=== PATIENT | male | born 1945 | race Caucasian/White ===

== ENCOUNTER → 2019-03-25 | Day surgery (SDC) | payer BC ==
[~2019-03-25] MED LIST: ACETAMINOPHEN 325 MG TABLET PO PRN; ALBUTEROL SULFATE 2.5 MG/3 ML NEBU. NEB PRN; ASPI81TA50 PO; ATROPINE 0.5 MG/5 ML DISP.SYRIN. IV PRN; BALANCED SALT IRRIG OPHTH SOLN 15 ML BOTTLE. IRR ONE; CARB1TAB14 PO; CARB1TAB2 PO; CATARACT OPHTH GEL 0.5 ML SYRINGE. ONE; CATARACT OPHTH GEL 0.5 ML SYRINGE. OS ONE; CHONDROIT-SOD-HYALURONATE KIT. OS ONE; EPINEPHrine AMPULE 0.5 MG in BALANCED SALT IRRIG SOLN PLUS 500 ML IO ONE; ERYTHROMYCIN 0.5% OPHTH OINTMENT 1GM TUBE. OS ONE; FERR325T14 PO; FINA5TAB4 PO; HYALURONIDASE 75UNITS in LIDOCAINE 2% PF OPHTH 10 ML SYRINGE. OS ONE; IV RINGERS SOLUTION,LACTATED 1,000 ML IV SCH; KETOROLAC TROMETHAMINE 0.5% OPHTH SOLUTION BOTTLE. ONE; LIDO/EPI IN BSS OPHTH 8 ML SYRINGE OD SCH; LIDOCAINE 2% PF Vial for OR 5 ML VIAL. ONE; METO50TA29 PO; OMEP20CA16 PO; ONDANSETRON PF 4 MG/2 ML VIAL. IV PRN; POVIDONE-IODINE 5% OPHTH SOLUTION 30ML BOTTLE. OS ONE; PROPOFOL 20 ML IV ONE; TETRACAINE 0.5% OPHTH SOLUTION 4ML BOTTLE. OS ONE; TETRACAINE 0.5% OPHTH SOLUTION 4ML BOTTLE. OU ONE; TOBRAMYCIN 0.3% OPHTH SOLUTION 5ML BOTTLE. OS SCH; diphenhydrAMINE 50 MG/ML VIAL IV PRN; prednisoLONE ACETATE 1% OPHTH SUSPENSION 5ML BOTTLE. ONE; prednisoLONE ACETATE 1% OPHTH SUSPENSION 5ML BOTTLE. OS SCH
[2019-03-25] MEDS: TOBRAMYCIN 0.3% OPHTH SOLUTION 5ML BOTTLE. OS SCH ×3 (07:06→07:16)
--- NOTE | 2019-03-25 08:33 | PDOC4 ---
CATARACT Operative Report DATE DATE: 03/25/19 TIME: 08:31 Operation Performed OPERATIVE REPORT Name: Malcolm Plascencia Operation Date: Preoperative Diagnosis: 1. Senile cataract, LEFTeye. 2. Inadequate pupillary dilation. Postoperative Diagnosis: 1. Senile cataract, LEFT:eye. 2. Inadequate pupillary dilation. Operation: 1. Phacoemulsification with posterior chamber intraocular lens implant. 2. Iris stretching via placement of Malyugan ring. Surgeon: Eugene Trevizo D.O. Anesthesia: Local with monitored anesthesia care Description of Operation: Under cardiac monitoring and mild IV sedation, the patient received peribulbar anesthesia in the holding area. Pressure was applied to the eye with a Honan balloon for approximately 10 minutes. The patient was taken to the operating room and placed in a supine position and the periorbital region was prepped and draped in the usual sterile fashion. A lid speculum was placed between the eyelids. A temporal clear corneal incision was made with a keratome. 1 cc of epi-Shugarcaine was injected into the anterior chamber. Viscoelastic was injected into the eye. A side port incision was made three clock hours to the left of the clear corneal incision. Due to continued poor dilation not responsive to epi-Shugarcaine, a Malyugan ring was placed. A cystotome and capsule forceps were used to make a continuous tear capsulorhexus. Hydrodissection was performed with balanced salt solution. The phacoemulsification needle was placed into the eye and the cataract was removed. The remaining cortical material was removed with the irrigation and aspiration apparatus. The posterior capsule was noted to be clean and intact. Viscoelastic was injected into the eye inflating the capsular bag. A foldable intraocular lens was injected into the eye, unfolding as desired, and positioned in the capsular bag. The Malyugan ring was then removed from the eye. The viscoelastic was aspirated from the eye. The wound edges were hydrated with balanced salt solution. There were no wound leaks. Viscoelastic was injected over the side port and clear corneal incisions. One drop of Vigamox and one drop of prednisolone acetate were instilled into the eye. The lid speculum was removed and a pressure dressing with a Regalado shield was placed over the eye. The patient was taken to the recovery room in good condition. GIANNI TREVIZO DO Mar 25, 2019 08:33
[2019-03-25 08:51] VITALS: BP 115/74
== END | disposition home or self-care (01) ==
LOC: SURG 06:06
PROVIDERS: ATTEND Ophthalmology
DX: H25.12 Age-related nuclear cataract, left eye (principal); I10 Essential (primary) hypertension; K21.9 Gastro-esophageal reflux disease without esophagitis; N40.0 Benign prostatic hyperplasia without lower urinary tract symptoms; G20 Parkinson's disease; Z87.39 Personal history of other diseases of the musculoskeletal system and connective tissue; Z79.82 Long term (current) use of aspirin; Z90.49 Acquired absence of other specified parts of digestive tract; Z98.890 Other specified postprocedural states; Z85.828 Personal history of other malignant neoplasm of skin; Z72.89 Other problems related to lifestyle
CPT/HCPCS: 66982; J0171; J2704; V2632; J2001

== ENCOUNTER → 2019-04-08 | Day surgery (SDC) | payer BC ==
[~2019-04-08] MED LIST changes: +CATARACT OPHTH GEL 0.5 ML SYRINGE. OD ONE; -CATARACT OPHTH GEL 0.5 ML SYRINGE. ONE; -CATARACT OPHTH GEL 0.5 ML SYRINGE. OS ONE; +CHONDROIT-SOD-HYALURONATE KIT. OD ONE; -CHONDROIT-SOD-HYALURONATE KIT. OS ONE; +ERYTHROMYCIN 0.5% OPHTH OINTMENT 1GM TUBE. OD ONE; -ERYTHROMYCIN 0.5% OPHTH OINTMENT 1GM TUBE. OS ONE; +HYALURONIDASE 75UNITS in LIDOCAINE 2% PF OPHTH 10 ML SYRINGE. OD ONE; -HYALURONIDASE 75UNITS in LIDOCAINE 2% PF OPHTH 10 ML SYRINGE. OS ONE; -IV RINGERS SOLUTION,LACTATED 1,000 ML IV SCH; +KETOROLAC TROMETHAMINE 0.5% OPHTH SOLUTION BOTTLE. OD SCH; +LIDO/EPI IN BSS OPHTH 8 ML SYRINGE OD PRN; -LIDO/EPI IN BSS OPHTH 8 ML SYRINGE OD SCH; -LIDOCAINE 2% PF Vial for OR 5 ML VIAL. ONE; +MIDAZOLAM HCL PF 2 MG/2 ML VIAL. IV PRN; +POVIDONE-IODINE 5% OPHTH SOLUTION 30ML BOTTLE. OD ONE; -POVIDONE-IODINE 5% OPHTH SOLUTION 30ML BOTTLE. OS ONE; +TETRACAINE 0.5% OPHTH SOLUTION 4ML BOTTLE. OD ONE; -TETRACAINE 0.5% OPHTH SOLUTION 4ML BOTTLE. OS ONE; +TOBRAMYCIN 0.3% OPHTH SOLUTION 5ML BOTTLE. OD SCH; -TOBRAMYCIN 0.3% OPHTH SOLUTION 5ML BOTTLE. OS SCH; +prednisoLONE ACETATE 1% OPHTH SUSPENSION 5ML BOTTLE. OD SCH; -prednisoLONE ACETATE 1% OPHTH SUSPENSION 5ML BOTTLE. OS SCH
[2019-04-08] MEDS: TOBRAMYCIN 0.3% OPHTH SOLUTION 5ML BOTTLE. OD SCH ×3 (08:36→08:51)
[2019-04-08 09:40] VITALS: BP 132/81
--- NOTE | 2019-04-08 09:42 | PDOC4 ---
CATARACT Operative Report DATE DATE: 04/08/19 TIME: 09:39 Operation Performed OPERATIVE REPORT Name: Malcolm Plascencia Operation Date: Preoperative Diagnosis: 1. Senile cataract, RIGHT eye. 2. Inadequate pupillary dilation. Postoperative Diagnosis: 1. Senile cataract, RIGHT eye. 2. Inadequate pupillary dilation. Operation: 1. Phacoemulsification with posterior chamber intraocular lens implant. 2. Iris stretching via placement of Malyugan ring. Surgeon: Eugene Trevizo D.O. Anesthesia: Local with monitored anesthesia care Description of Operation: After disussing the risks, complication, and alternatives, including but not limited to loss of vision, infection, retinal detachment, capsule rupture, diplopia, ptosis, loss of side vision, dry eye, etc. The patient was taken to the anesthesia block area. Under cardiac monitoring and mild IV sedation, the patient received peribulbar anesthesia in the holding area. Pressure was applied to the eye with a Honan balloon for approximately 10 minutes. The patient was taken to the operating room and placed in a supine position and the periorbital region was prepped and draped in the usual sterile fashion. A lid speculum was placed between the eyelids. A temporal clear corneal incision was made with a keratome. 1 cc of epi-Shugarcaine was injected into the anterior chamber. Viscoelastice was injected into the eye. A side port incision was made three clock hours to the left of the clear corneal incision. Due to continued poor dilation not responsive to epi-Shugarcaine, a Malyugan ring was placed. A cystotome and capsule forceps were used to make a continuous tear capsulorhexus. Hydrodissection was performed with balanced salt solution. The phacoemulsification needle was placed into the eye and the cataract was removed. The remaining cortical material was removed with the irrigation and aspiration apparatus. The posterior capsule was noted to be clean and intact. Viscoelastic was injected into the eye inflating the capsular bag. A foldable intraocular lens was injected into the eye, unfolding as desired, and positioned in the capsular bag. The Malyugan ring was then removed from the eye. The viscoelastic was aspirated from the eye. The wound edges were hydrated with balanced salt solution. There were no wound leaks. Viscoelastic was injected over the side port and clear corneal incisions. One drop of Vigamox and one drop of prednisolone acetate were instilled into the eye. The lid speculum was removed and a pressure dressing with a Regalado shield was placed over the eye. The patient was taken to the recovery room in good condition. GIANNI TREVIZO DO Apr 08, 2019 09:42
== END ==
LOC: SURG 08:02
PROVIDERS: ATTEND Ophthalmology
DX: H25.11 Age-related nuclear cataract, right eye (principal); I10 Essential (primary) hypertension; K21.9 Gastro-esophageal reflux disease without esophagitis; E66.9 Obesity, unspecified; Z68.30 Body mass index [BMI] 30.0-30.9, adult; Z90.49 Acquired absence of other specified parts of digestive tract; Z72.89 Other problems related to lifestyle; Z85.828 Personal history of other malignant neoplasm of skin
CPT/HCPCS: 66982; J0171; J2704; V2632

== ENCOUNTER → 2020-06-29 | Outpatient (CLI) | payer BC ==
[2019-04-08 09:40] VITALS: BP 132/81
[~2020-06-29] MED LIST changes: -ACETAMINOPHEN 325 MG TABLET PO PRN; -ALBUTEROL SULFATE 2.5 MG/3 ML NEBU. NEB PRN; -ATROPINE 0.5 MG/5 ML DISP.SYRIN. IV PRN; -BALANCED SALT IRRIG OPHTH SOLN 15 ML BOTTLE. IRR ONE; +CARB-186 PO; -CARB1TAB2 PO; -CATARACT OPHTH GEL 0.5 ML SYRINGE. OD ONE; -CHONDROIT-SOD-HYALURONATE KIT. OD ONE; -EPINEPHrine AMPULE 0.5 MG in BALANCED SALT IRRIG SOLN PLUS 500 ML IO ONE; -ERYTHROMYCIN 0.5% OPHTH OINTMENT 1GM TUBE. OD ONE; -HYALURONIDASE 75UNITS in LIDOCAINE 2% PF OPHTH 10 ML SYRINGE. OD ONE; -KETOROLAC TROMETHAMINE 0.5% OPHTH SOLUTION BOTTLE. OD SCH; -KETOROLAC TROMETHAMINE 0.5% OPHTH SOLUTION BOTTLE. ONE; -LIDO/EPI IN BSS OPHTH 8 ML SYRINGE OD PRN; -MIDAZOLAM HCL PF 2 MG/2 ML VIAL. IV PRN; -ONDANSETRON PF 4 MG/2 ML VIAL. IV PRN; -POVIDONE-IODINE 5% OPHTH SOLUTION 30ML BOTTLE. OD ONE; -PROPOFOL 20 ML IV ONE; -TETRACAINE 0.5% OPHTH SOLUTION 4ML BOTTLE. OD ONE; -TETRACAINE 0.5% OPHTH SOLUTION 4ML BOTTLE. OU ONE; -TOBRAMYCIN 0.3% OPHTH SOLUTION 5ML BOTTLE. OD SCH; -diphenhydrAMINE 50 MG/ML VIAL IV PRN; -prednisoLONE ACETATE 1% OPHTH SUSPENSION 5ML BOTTLE. OD SCH; -prednisoLONE ACETATE 1% OPHTH SUSPENSION 5ML BOTTLE. ONE
== END ==
LOC: LAB 13:10
PROVIDERS: ATTEND Physician Assistant Surgical
DX: Z01.812 Encounter for preprocedural laboratory examination (principal); M54.16 Radiculopathy, lumbar region; Z20.822 Contact with and (suspected) exposure to COVID-19
CPT/HCPCS: C9803; U0003; U0005

== ENCOUNTER 2021-06-06 03:38 | Emergency (ER) | payer BC ==
[~2021-06-06] VITALS: Ht 177.8 cm; Wt 95.0 kg
--- NOTE | 2021-06-06 03:45 | PHYS DOC ---
General Adult HPI: HPI: "..I am having a lot of spasm.. they are causing more pain... I have severe DJD of my spine.. I ve had 5 back surgeries.. I had been at before ... but now following at [facility] on [address].. but the had contamination of surgery area due to autoclave leak..and now all surgery is delayed.. I just need some to help tonight.. " Patient is a 75 year old male who presents with above hx and complaints o exacerbation of his chronic back pain. 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 Patient has been following with Dr. Donald Henning As primary.. Patient has been following at [facility] Dr. Alberto for plan recurrent back surgery. Patient states he is currently been laid on surgery schedule because of surgery suite contamination at [facility]. Patient recently had prostate surgery and still has some incontinence. Patient denies any recent travel. Patient notes no specific ill contacts. Has been compliant with meds as currently prescribed. Patient does state he hates sedation side effects of meds. Review of Systems: Review of Systems: Constitutional: Denies fever or chills Eyes: Denies change in visual acuity HENT: Denies nasal congestion or sore throat Respiratory: Denies cough or shortness of breath Cardiovascular: Denies chest pain or edema GI: Denies abdominal pain, nausea, vomiting, bloody stools or diarrhea : Denies dysuria Musculoskeletal: Complains of exacerbation of chronic back pain Integument: Denies rash Neurologic: Denies headache, focal weakness or sensory changes Endocrine: Denies polyuria or polydipsia Lymphatic: Denies swollen glands Psychiatric: Denies depression or anxiety Family History: Family History: Noncontributory to presentation Current Medications: Current Meds: See nursing for home meds Allergies: Allergies: Allergies Coded Allergies Type Severity Reaction Last Updated Verified scopolamine Allergy Intermediate 03/25/19 Yes Sulfa (Sulfonamide Antibiotics) Allergy Unknown 03/19/19 Yes levofloxacin Allergy Unknown 03/19/19 Yes oxycodone Allergy Unknown 03/19/19 Yes ranitidine Allergy Unknown 03/19/19 Yes Physical Exam: PE: Constitutional: Moderate acute distress, non-toxic appearance. [] HENT: Normocephalic, atraumatic, bilateral external ears normal, oropharynx moist, no oral exudates, nose normal. [] Eyes: PERRLA, EOMI, conjunctiva normal, no discharge. [] Neck: Normal range of motion, no tenderness, supple, no stridor. [] Cardiovascular:Heart rate regular rhythm, no murmur [] Lungs & Thorax: Bilateral breath sounds equal at apex on auscultation [] Abdomen: Bowel sounds normal, soft, no tenderness, no masses, no pulsatile masses. [] Skin: Warm, dry, no erythema, no rash. No petechiae appreciated. Back: Paralumbar tenderness, no CVA tenderness. Extensive scarring lumbar sacral area. Extremities: No tenderness, no cyanosis, no clubbing, ROM intact, no edema. [] Neurologic: Alert and oriented X 3, does move extremities on request, does have distal sensory,, no focal deficits noted. Does have noted spasm in lower limbs. Psychologic: Affect very anxious but any medications, judgement normal, mood normal. [] EKG: EKG: [] Radiology/Procedures: Radiology/Procedures: [] Heart Score: C/O Chest Pain: N/A Risk Factors: Risk Factors: DM, Current or recent (<one month) smoker, HTN, HLP, family history of CAD, obesity. Risk Scores: Score 0 - 3: 2.5% MACE over next 6 weeks - Discharge Home Score 4 - 6: 20.3% MACE over next 6 weeks - Admit for Clinical Observation Score 7 - 10: 72.7% MACE over next 6 weeks - Early Invasive Strategies Course & Med Decision Making: Course & Med Decision Making Pertinent Labs and Imaging studies reviewed. (See chart for details) After discussions. with pt. and . Has elected to try oral Flexeril and Toradol inject 30 mg. Impression: 1. Acute on Chronic Back Pain and Spasms. [] Dragon Disclaimer: Dragon Disclaimer: This electronic medical record was generated, in whole or in part, using a voice recognition dictation system. Departure Departure: Referrals: ZA HENNING MD (PCP) TAMMY GOMEZ MD Jun 06, 2021 03:45
[2021-06-06] MEDS ORDERED: CYCLOBENZAPRINE 10 MG TABLET. ONE (04:12)
[2021-06-06] MEDS ORDERED: KETOROLAC 30 MG/ML VIAL. IVP ONE (04:30)
[2021-06-06] MEDS ORDERED: KETOROLAC 30 MG/ML VIAL. IM ONE (04:45)
[2021-06-06] MEDS ORDERED: KETOROLAC 60 MG/2 ML VIAL. IM ONE (04:45)
[2021-06-06] MEDS ORDERED: CYCLOBENZAPRINE 10 MG TABLET. PO ONE (05:00)
[2021-06-06 05:10] VITALS: BP 122/64
== END 2021-06-06 05:10 | disposition home or self-care (01) ==
LOC: ER 03:38
DX: G89.29 Other chronic pain (principal); M62.830 Muscle spasm of back; Z88.2 Allergy status to sulfonamides; Z88.1 Allergy status to other antibiotic agents; Z88.5 Allergy status to narcotic agent; Z88.8 Allergy status to other drugs, medicaments and biological substances
CPT/HCPCS: 96372; 99283; J1885